=== PATIENT | female | born 1990 | race Caucasian/White ===

== ENCOUNTER 2018-11-27 22:42 | Inpatient (IN) | payer MEDICAID ==
[2018-11-27 23:45] LABS: ADD UMIC YES; UR ASCORBIC ACID 40 mg/dL (NEGATIVE); UR BACTERIA FEW /HPF (NONE SEEN); UR BILIRUBIN (Dip) NEGATIVE (NEGATIVE); UR BLOOD (Dip) NEGATIVE (NEGATIVE); UR CLARITY SLIGHTLY CLOUDY (CLEAR); UR COLOR YELLOW (YELLOW); UR GLUCOSE (Dip) NEGATIVE (NEGATIVE); UR KETONES (Dip) NEGATIVE (NEGATIVE); UR LEUKOCYTE ESTERASE (Dip) 1+ Leu/ul (NEGATIVE); UR MUCUS FEW /HPF (NONE SEEN); UR NITRITE (Dip) NEGATIVE (NEGATIVE); UR RBC 4 /HPF (0-5); UR SPECIFIC GRAVITY (Dip) 1.021 (1.003-1.030); UR SQUAMOUS EPITHELIAL CELL MODERATE /HPF (FEW); UR TOTAL PROTEIN (Dip) NEGATIVE (NEGATIVE); UR UROBILINOGEN (Dip) NEGATIVE (NEGATIVE); UR WBC 23 /HPF (0-5)
[2018-11-28 00:55] LABS: ADD MAN DIFF? NO
[2018-11-28 01:00] LABS: WHITE BLOOD COUNT 14.2 10^3/ul (4.8-10.8)
[2018-11-28 01:00] LABS: BASOPHILS % 0.2 % (0.0-2.0); EOSINOPHILS # 0.2 10^3/ul (0.0-0.5); EOSINOPHILS % 1.1 % (0.0-7.0); HEMATOCRIT 37.3 % (37.0-47.0); LYMPHOCYTES # 3.1 10^3/ul (0.8-2.9); LYMPHOCYTES % 22.1 % (15.0-51.0); MEAN CORPUSCULAR HEMOGLOBIN 28.2 pg (29.0-33.0); MEAN CORPUSCULAR HGB CONC 32.2 g/dl (32.0-37.0); MEAN CORPUSCULAR VOLUME 87.6 fl (82.0-101.0); MEAN PLATELET VOLUME 9.6 fl (7.4-10.4); MONOCYTE # 1.3 10^3/ul (0.3-0.9); MONOCYTES % 8.9 % (0.0-11.0); NEUTROPHIL # 9.4 10^3/ul (1.6-7.5); NEUTROPHILS % 66.1 % (39.0-77.0); PLATELET COUNT 288 10^3/UL (140-415); RED BLOOD COUNT 4.26 10^6/ul (4.20-5.40); RED CELL DISTRIBUTION WIDTH 13.5 % (11.5-14.5)
[2018-11-28] MEDS: LACTATED RINGER'S 1,000 ML IV ×6 (01:35→21:53)
[2018-11-28] MEDS: TERBUTALINE 1 MG/ML INJ SC (01:36)
[2018-11-28] MEDS ORDERED: ACETAMINOPHEN 325 MG TAB PO (03:30)
[2018-11-28] MEDS ORDERED: AL HYDROX/MG HYDROX/SIMETH 30 ML CUP PO (03:30)
[2018-11-28] MEDS: MAGNESIUM SULFATE 4 GM/100 ML 100 ML IV (04:07)
[2018-11-28] MEDS: MAGNESIUM SULFATE 20 GM/500 ML 500 ML IV ×2 (04:44→14:58)
[2018-11-28] MEDS: AMPICILLIN 2 GM/NS (PMX) 100 ML IV ×4 (04:45→22:48)
[2018-11-28] MEDS: BETAMET NA PHOS/AC(6 MG/ML) 2 ML INJ SYG IM (04:46)
[2018-11-28 06:59] LABS: MAGNESIUM 4.1 mg/dl (1.7-2.5)
[2018-11-28 06:59] LABS: INR 0.91; PARTIAL THROMBOPLASTIN TIME 25.6 Sec (23.0-35.0); PROTIME 12.4 Sec (11.9-14.9)
[2018-11-28] MEDS: PRENATAL VITAMIN PO (10:41)
[2018-11-28 13:30] LABS: MAGNESIUM 5.1 mg/dl (1.7-2.5)
[2018-11-28 14:57] LABS: RAPID PLASMA REAGIN NONREACTIVE (NR)
[2018-11-28 18:27] LABS: MAGNESIUM 5.4 mg/dl (1.7-2.5)
[2018-11-29] MEDS: MAGNESIUM SULFATE 20 GM/500 ML 500 ML IV ×3 (01:19→19:21)
[2018-11-29 01:27] LABS: MAGNESIUM 5.8 mg/dl (1.7-2.5)
[2018-11-29] MEDS: AMPICILLIN 2 GM/NS (PMX) 100 ML IV ×4 (04:45→23:00)
[2018-11-29] MEDS: BETAMET NA PHOS/AC(6 MG/ML) 2 ML INJ SYG IM (04:46)
[2018-11-29 07:04] LABS: MAGNESIUM 5.5 mg/dl (1.7-2.5)
[2018-11-29] MEDS: PRENATAL VITAMIN PO (09:02)
[2018-11-29] MEDS: LACTATED RINGER'S 1,000 ML IV ×5 (11:11→19:59)
[2018-11-29 13:08] LABS: MAGNESIUM 5.9 mg/dl (1.7-2.5)
[2018-11-29 18:40] LABS: MAGNESIUM 5.9 mg/dl (1.7-2.5)
[2018-11-30 00:57] LABS: MAGNESIUM 6.2 mg/dl (1.7-2.5)
[2018-11-30] MEDS: LACTATED RINGER'S 1,000 ML IV ×3 (03:45→15:22)
[2018-11-30] MEDS: AMPICILLIN 2 GM/NS (PMX) 100 ML IV (05:00)
[2018-11-30] MEDS: PRENATAL VITAMIN PO (09:17)
[2018-12-01] MEDS: NIFEdipine 10 MG CAP PO ×3 (00:03→12:02)
[2018-12-01] MEDS: LACTATED RINGER'S 1,000 ML IV ×3 (01:52→18:06)
[2018-12-01] MEDS: PRENATAL VITAMIN PO (09:03)
[2018-12-01] MEDS ORDERED: CEFAZOLIN 2 GM/50 ML (PMX) 50 ML IVPB (16:11)
[2018-12-01] MEDS: AZITHROMYCIN 500MG/NS (PMX) 250 ML IV (16:21)
[2018-12-01] MEDS ORDERED: DEXAMETHASONE 4 MG/ML 1 ML INJ (16:56)
[2018-12-01] MEDS ORDERED: ONDANSETRON 4 MG INJ (16:56)
[2018-12-01] MEDS ORDERED: FAMOTIDINE 20 MG INJ (16:56)
[2018-12-01] MEDS ORDERED: OXYTOCIN 30 UNITS/LR 500 ML IV ×2 (17:01→21:00)
[2018-12-01] MEDS ORDERED: KETAMINE (50 MG/ML) 10 ML VIAL (17:01)
[2018-12-01] MEDS: CEFAZOLIN 2 GM/50 ML (PMX) 50 ML IVPB (17:32)
[2018-12-01 17:39] LABS: CBV Base Excess -4.3 mmol/L; CBV COHb 1.7 %; CBV Oxygen Sat 71.4 mmHG; CBV Total Hemglobin 12.1 g/dl; Cord Blood Venous AADO2 82.2 mmHg; Cord Blood Venous pO2 28.5 mmHG (15.0-45.0); Fraction OxyHgb Cord Venous 69.3 %; MODE ROOM AIR; MetHgb Cord Venous 1.2 %; Sample Type CBV; Site CORD
[2018-12-01 17:48] LABS: AADO2 Cord Arterial 39.9 mmHg; CBA Base Excess -4.8 mmol/L; CBA COHb 0 %; CBA Oxygen Sat 98.5 mmHG; CBA Total Hemglobin 9.8 g/dl; Cord Blood Arterial pO2 79.9 mmHG (15.0-45.0); MODE ROOM AIR; MetHgb Cord Arterial 0.5 %; Sample Type CBV; Site CORD
[2018-12-01] MEDS ORDERED: DIPHENHYDRAMINE 50 MG INJ IV (18:00)
[2018-12-01] MEDS ORDERED: HYDROmorphONE 1 MG/5 ML IV SYRINGE IV ×3 (18:00)
[2018-12-01] MEDS ORDERED: NALOXONE (0.4 MG/ML) INJ IV (18:00)
[2018-12-01] MEDS ORDERED: MEPERIDINE 25 MG INJ IV (18:00)
[2018-12-01] MEDS ORDERED: LORAZEPAM 2 MG INJ IV (18:00)
[2018-12-01] MEDS ORDERED: ONDANSETRON 4 MG INJ IV ×2 (18:00→21:30)
[2018-12-01] MEDS: KETOROLAC 30 MG INJ IV (18:37)
[2018-12-01] MEDS: HYDROmorphONE 0.2 MG/ML PCA IV (20:00)
[2018-12-01] MEDS: OXYTOCIN 30 UNITS/LR 500 ML IV ×2 (20:07→23:56)
[2018-12-01] MEDS ORDERED: CARBOPROST 250 MCG INJ IM (21:00)
[2018-12-01] MEDS ORDERED: METHYLERGONOVINE 0.2 MG INJ IM (21:00)
[2018-12-01] MEDS ORDERED: MISOPROSTOL 200 MCG TAB PR (21:00)
[2018-12-01] MEDS: SENNA/DOCUSATE NA (8.6MG/50MG) TAB PO (21:00)
[2018-12-01] MEDS ORDERED: LANOLIN HPA 1 PKT TOP (21:00)
[2018-12-01] MEDS ORDERED: OXYCODONE/ACETAMINOPHEN (5/325) TAB PO (21:00)
[2018-12-01] MEDS ORDERED: DIPHENHYDRAMINE 50 MG INJ IM (21:30)
[2018-12-01] MEDS ORDERED: KETOROLAC 30 MG INJ IV (21:30)
[2018-12-01] MEDS: IBUPROFEN 800 MG TAB PO (22:00)
[2018-12-02] MEDS: IBUPROFEN 800 MG TAB PO ×3 (06:00→21:30)
[2018-12-02 08:11] LABS: ADD MAN DIFF? NO
[2018-12-02 08:19] LABS: ABNORMAL IP MESSAGE 1; BASOPHILS % 0.2 % (0.0-2.0); HEMATOCRIT 29.5 % (37.0-47.0); HEMOGLOBIN 9.8 g/dl (12.0-16.0); LYMPHOCYTES # 2.7 10^3/ul (0.8-2.9); LYMPHOCYTES % 12.2 % (15.0-51.0); MEAN CORPUSCULAR HEMOGLOBIN 28.8 pg (29.0-33.0); MEAN CORPUSCULAR HGB CONC 33.2 g/dl (32.0-37.0); MEAN CORPUSCULAR VOLUME 86.8 fl (82.0-101.0); MEAN PLATELET VOLUME 9.8 fl (7.4-10.4); MONOCYTE # 1.7 10^3/ul (0.3-0.9); MONOCYTES % 7.6 % (0.0-11.0); NEUTROPHIL # 17.1 10^3/ul (1.6-7.5); NEUTROPHILS % 78.2 % (39.0-77.0); PLATELET COUNT 261 10^3/UL (140-415); RED CELL DISTRIBUTION WIDTH 13.5 % (11.5-14.5)
[2018-12-02 08:19] LABS: WHITE BLOOD COUNT 21.8 10^3/ul (4.8-10.8)
[2018-12-02 08:24] LABS: POSITIVE DIFF @See below
[2018-12-02] MEDS: SENNA/DOCUSATE NA (8.6MG/50MG) TAB PO ×2 (08:46→21:30)
[2018-12-02] MEDS: LACTATED RINGER'S 1,000 ML IV (08:47)
[2018-12-03] MEDS: IBUPROFEN 800 MG TAB PO ×3 (06:00→21:53)
[2018-12-03 07:46] LABS: ADD MAN DIFF? NO
[2018-12-03 07:53] LABS: WHITE BLOOD COUNT 13.2 10^3/ul (4.8-10.8)
[2018-12-03 07:53] LABS: BASOPHILS % 0.3 % (0.0-2.0); EOSINOPHILS # 0.1 10^3/ul (0.0-0.5); HEMOGLOBIN 10.2 g/dl (12.0-16.0); LYMPHOCYTES # 3.2 10^3/ul (0.8-2.9); LYMPHOCYTES % 24.2 % (15.0-51.0); MEAN CORPUSCULAR HEMOGLOBIN 28.7 pg (29.0-33.0); MEAN CORPUSCULAR HGB CONC 32.9 g/dl (32.0-37.0); MEAN CORPUSCULAR VOLUME 87.3 fl (82.0-101.0); MEAN PLATELET VOLUME 9.4 fl (7.4-10.4); MONOCYTE # 1.2 10^3/ul (0.3-0.9); NEUTROPHIL # 8.4 10^3/ul (1.6-7.5); NEUTROPHILS % 63.3 % (39.0-77.0); PLATELET COUNT 273 10^3/UL (140-415); RED BLOOD COUNT 3.55 10^6/ul (4.20-5.40); RED CELL DISTRIBUTION WIDTH 13.5 % (11.5-14.5)
[2018-12-03] MEDS: SENNA/DOCUSATE NA (8.6MG/50MG) TAB PO ×2 (09:00→21:53)
[2018-12-04] MEDS: IBUPROFEN 800 MG TAB PO ×2 (06:02→14:34)
[2018-12-04] MEDS: SENNA/DOCUSATE NA (8.6MG/50MG) TAB PO (09:00)
[2018-12-04] MEDS: DIPHTH/TET/ACEL PERTUSS (ADULT) 0.5 ML VIAL IM* (09:44)
[2018-12-04] MEDS: OXYCODONE/ACETAMINOPHEN (5/325) TAB PO (12:12)
== END 2018-12-04 21:15 | disposition home or self-care (01) | DRG 787 ==
LOC: OBT 22:42 → L-D 22:44 → PP1 12-01 20:47 → L-D 11-28 20:01
PROC: 10D00Z1 Extraction of Products of Conception, Low, Open Approach (ICD-10-PCS; principal; 2018-11-28)
DX: O60.12X0 Preterm labor second trimester with preterm delivery second trimester, not applicable or unspecified (principal); O26.872 Cervical shortening, second trimester; O32.1XX0 Maternal care for breech presentation, not applicable or unspecified; Z3A.24 24 weeks gestation of pregnancy; Z37.0 Single live birth
CPT/HCPCS: 36415; 36600; 76815; 76817; 81001; 82803; 83735; 85025; 85610; 85730; 86592; 86850; 86900; 86901; 88307; 96360; 96372; 99464